=== PATIENT | male | born 1955 | race Caucasian/White ===

== ENCOUNTER → 2017-07-30 | Outpatient (CLI) | payer BC ==
--- NOTE | 2017-07-30 14:15 | US ---
EXAM DESCRIPTION: Venous,Lower Extremity LT: ULTRASOUND. CLINICAL HISTORY: Lower extremity edema. COMPARISON: Duplex ultrasound evaluation of the right lower extremity veins the same visit. TECHNIQUE: Two -dimensional and doppler sonographic evaluation of the deep venous system of the left lower extremity. FINDINGS: Doppler evaluation shows normal color flow and normal phasicity and augmentation of the left common femoral vein, femoral vein, popliteal vein, greater saphenous vein, peroneal, anterior and posterior tibial vein. The left lower extremity deep veins showed normal occlusion with transducer pressure. Two-dimensional survey showed no echogenic thrombus within these veins. IMPRESSION: 1. Duplex ultrasound evaluation of the left lower extremity deep venous system showing no evidence of thrombosis or embolism. Electronically signed by: Tomy Valdez MD 07/30/2017 2:14 PM CDT
--- NOTE | 2017-07-30 14:18 | US ---
EXAM DESCRIPTION: Venous,Lower Extremity RT: ULTRASOUND. CLINICAL HISTORY: EDEMA. Right lower extremity. COMPARISON: Duplex ultrasound evaluation of the left lower extremity deep venous system. TECHNIQUE: Two -dimensional and doppler sonographic evaluation of the deep venous system of the right lower extremity. FINDINGS: Doppler evaluation shows normal color flow and normal phasicity and augmentation of the right common femoral vein, femoral vein, popliteal vein, greater saphenous vein, peroneal, and posterior tibial vein. The right lower extremity deep veins showed normal occlusion with transducer pressure. Two-dimensional survey showed no echogenic thrombus within these veins. IMPRESSION: 1. Duplex ultrasound evaluation of the right lower extremity deep venous system showing no evidence of thrombosis or embolism. Electronically signed by: Tomy Valdez MD 07/30/2017 2:17 PM CDT
== END ==
LOC: US 09:17
PROVIDERS: ATTEND Nurse Practitioner Family
DX: R60.0 Localized edema (principal); I10 Essential (primary) hypertension

== ENCOUNTER 2019-12-14 14:20 | Emergency (ER) | payer MEDICARE, OTHER ==
[2019-12-14] MEDS ORDERED: SODIUM CHLORIDE 0.9% (FLUSH) 10 ML SYG IV PRN (14:26)
--- NOTE | 2019-12-14 14:34 | ED.PDOC ---
History of Present Illness - General Time Seen by Provider: 12/14/19 14:26 Source: patient, RN notes reviewed, Vital Signs reviewed, EMS notes reviewed Exam Limitations: no limitations - History of Present Illness Initial Comments: Patient is a 64-year-old male who presents to ED via EMS for chest pain. States he was informed about an hour ago that his brother was found in his car. While he was driving to the scene to see him, he began having sharp left-sided chest pain that radiated to the left arm and feeling short of breath. The pain worsened upon seeing his brother and EMS was called. He was given aspirin and nitroglycerin prior to arrival and chest pain has now resolved. Initially, he declined any lab work or tests in ED and thinks his pain was just because he got upset and emotional at hearing that his brother had . He denies any symptoms at this time and will allow for 1 set of lab work and EKG to be done. Timing/Duration: 1 hour Severity: moderate Worsening Factors: other - has resolved Associated Symptoms: chest pain Allergies/Adverse Reactions: Allergies NO KNOWN ALLERGY Allergy (Unverified 12/14/19 14:47) Review of Systems - Review of Systems Constitutional: Denies: chills, fever, weakness EENTM: Denies: nose congestion, throat pain, throat swelling Respiratory: States: short of breath. Denies: cough Cardiology: States: chest pain. Denies: palpitations, syncope Gastrointestinal/Abdominal: States: nausea. Denies: abdominal pain, vomiting Musculoskeletal: Denies: back pain, neck pain Skin: States: no symptoms reported Hematologic/Lymphatic: Denies: easy bleeding, easy bruising All other Systems: Reviewed and Negative Family Medical History - Family History Mother Family History: Unknown Physical Exam - Physical Exam General Appearance: Alert, Anxious, Comfortable, No apparent distress Neck: non-tender, full range of motion, supple Respiratory: chest non-tender, lungs clear, normal breath sounds, no respiratory distress, no accessory muscle use Cardiovascular/Chest: regular rate, rhythm, no edema, no murmur Gastrointestinal/Abdominal: non tender, soft, no pulsatile mass Back Exam: no CVA tenderness, no vertebral tenderness Extremity: normal range of motion, non-tender, no pedal edema Neurologic: brim edge trimmer II-XII nml as tested, no motor/sensory deficits, alert, normal mood/affect Skin Exam: normal color, warm/dry Progress - Progress Progress: 12/14/19 15:35 Patient is resting comfortably. He denies any pain, nausea or shortness of breath at this time. I have discussed EKG and lab work results and have recommended trending enzymes in ED. He agrees with repeat troponin in ED. 12/14/19 17:00 Presents to ED with chest pain that began today after being notified that his brother was found . He has been pain-free in the ED. EKG, chest x-ray, troponin x2 and other labs are reassuring. Vital signs have been stable. He feels comfortable going home I have asked him to follow-up with his PCP and process safety engineering technologist in 1 to 2 days for continued evaluation. Strict return precautions given. - Results/Orders Results/Orders: EKG- NSR, rate 81, nml intervals, no ST abnormality CHEST XRAY Study: Single Frontal Radiograph of the Chest. Indication:chest pain Comparison: May 29, 2012 Impression: Heart size upper limits of normal. Bibasilar atelectasis, otherwise lungs clear. No acute osseous abnormality. 12/14/19 14:26 IV Care:Saline Lock per Protoc QSHIFT Telemetry ONCE Sodium Chloride 0.9% (Flush) [Saline Flush Syringe] 3 ml IV PRN PRN Oxygen Stat 12/14/19 14:30 EKG STAT 12/15/19 09:00 Pulse Ox Daily Laboratory Results - last 24 hr 12/14/19 12/14/19 14:20 16:15 WBC 6.8 RBC 5.42 Hgb 16.6 Hct 46.4 MCV 85.5 MCH 30.6 MCHC 35.8 RDW 13.6 Plt Count 259 MPV 8.7 Absolute Neuts (auto) 3.10 Absolute Lymphs (auto) 2.80 Absolute Monos (auto) 0.70 Absolute Eos (auto) 0.10 Absolute Basos (auto) 0.10 Neutrophils % 45.5 Lymphocytes % 40.6 Monocytes % 10.9 H Eosinophils % 1.7 Basophils % 1.3 PT 9.4 INR < 1.00 PTT (SP) 22.7 Sodium 140 Potassium 3.7 Chloride 103 Carbon Dioxide 26 Anion Gap 14.7 BUN 16 Creatinine 1.10 BUN/Creatinine Ratio 14.5 Random Glucose 115 H Serum Osmolality 281.5 Calcium 9.3 Magnesium 1.9 Creatine Kinase 84 CK-MB (CK-2) 2.0 CK-MB (CK-2) % Not Reportable Troponin I < 0.02 < 0.02 Departure - Departure Clinical Impression: Atypical chest pain, Emotional stress reaction Time of Disposition: 17:03 Disposition: Discharge to Home or Self Care Condition: Good Instructions: Chest Pain (DC) Diet: resume usual diet, low salt diet Activity: increase activity as tolerated Referrals: Carlos A David MD [Active Staff] - 1-2 Days Additional Instructions: Follow up with your process safety engineering technologist for continued chest pain evaluation
--- NOTE | 2019-12-14 15:00 | RAD ---
Study: Single Frontal Radiograph of the Chest. Indication:chest pain Comparison: May 29, 2012 Impression: Heart size upper limits of normal. Bibasilar atelectasis, otherwise lungs clear. No acute osseous abnormality. Electronically signed by: Julian Ramirez MD 12/14/2019 2:58 PM CDT
[2019-12-14 20:09] VITALS: BP 129/89; TEMP 98.4; O2SAT 97
== END 2019-12-14 17:30 | disposition home or self-care (01) ==
LOC: ER 14:20
DX: R07.89 Other chest pain (principal); F43.8 Other reactions to severe stress; R06.02 Shortness of breath; R11.0 Nausea

== ENCOUNTER → 2020-01-03 | Outpatient (CLI) | payer MEDICARE, OTHER | LOC: GMAM 12:47 | PROVIDERS: ATTEND Family Medicine | DX: R07.89 Other chest pain (principal); D68.51 Activated protein C resistance ==

== ENCOUNTER → 2020-03-13 | Outpatient (CLI) | payer MEDICARE, OTHER | LOC: GMAM 12:39 | PROVIDERS: ATTEND Family Medicine | DX: M25.561 Pain in right knee (principal); K76.0 Fatty (change of) liver, not elsewhere classified; R07.89 Other chest pain ==

== ENCOUNTER → 2020-03-16 | Outpatient (CLI) | payer MEDICARE, OTHER ==
--- NOTE | 2020-03-19 06:13 | MRI ---
Study: MRI of the Right Knee. Indication: PN IN RIGHT KNEE Technique: Multiplanar, multi sequence MRI of the right knee was obtained without intravenous contrast. Comparison: None. Findings: ACL, PCL, and lateral collateral ligament complex intact. MCL is lax and bowed indicating sequela of a prior MCL sprain. No acute tear. Irregular free edge and undersurface tearing posterior horn/root and body medial meniscus with a tiny flap fragment displaced into the gutter at the junction posterior horn and body. Body extruded by 2 mm. Free edge fraying posterior horn and body lateral meniscus. Areas of grade 2 and 3 chondral thinning and surface irregularity medial and lateral knee compartments but with more pronounced grade 3/4 chondrosis at the posterior weightbearing aspects of the lateral compartment. Patellofemoral extensor mechanism intact. Patella normally located. Mild grade 4 chondrosis and subchondral marrow change inferior margin medial femoral trochlea. Moderate size knee effusion. Small Cano's cyst, partially ruptured. No acute fracture. Impression: Irregular free edge and undersurface tearing posterior horn/root and body medial meniscus as above. Free edge fraying posterior horn and body lateral meniscus. Grade 2-3 chondral thinning medial knee compartment with additional grade 3/4 chondral loss posterior aspects lateral compartment. Mild grade 4 chondrosis inferior margin medial femoral trochlea. Moderate size knee effusion. Electronically signed by: Julian Ramirez MD 03/19/2020 6:12 AM [employer]
== END ==
LOC: MRI 10:40
PROVIDERS: ATTEND Family Medicine
DX: S83.241A Other tear of medial meniscus, current injury, right knee, initial encounter (principal); M23.300 Other meniscus derangements, unspecified lateral meniscus, right knee; M94.261 Chondromalacia, right knee; M25.461 Effusion, right knee